=== PATIENT | female | born 1980 | race Caucasian/White ===

== ENCOUNTER 2022-06-22 06:16 | Emergency (ER) | payer BC ==
[~2022-06-22] VITALS: Ht 157.5 cm; Wt 41.7 kg
--- NOTE | 2022-06-22 06:35 | NUR ---
bibself c/o cp x 1 day. vss. no acute distress noted.
[2022-06-22] MEDS ORDERED: LORAZEPAM 1 MG TABLET ONE (06:43)
--- NOTE | 2022-06-22 06:53 | NUR ---
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
[2022-06-22] MEDS ORDERED: LORAZEPAM 1 MG TABLET PO ONE (07:00)
--- NOTE | 2022-06-22 07:45 | NUR ---
PT AWAKE AND ALERT NO CHEST PAIN NO SOB
[2022-06-22 08:13] LABS: BASOPHILS # (AUTO) 0.1 K/uL (0.0-0.2); EOSINOPHILS % (AUTO) 1.1 % (0.0-6.0); HEMATOCRIT 37 % (33-45); HEMOGLOBIN 12.4 g/dL (11.5-14.8); LYMPHOCYTES # (AUTO) 1.7 K/uL (0.8-4.8); MEAN CORPUSCULAR HGB CONC 34 g/dl (31.0-36.0); MEAN CORPUSCULAR VOLUME 91 fL (82-100); MONOCYTES # (AUTO) 0.8 K/uL (0.1-1.30); NEUTROPHILS # (AUTO) 8.1 K/uL (1.8-8.9); NEUTROPHILS % (AUTO) 74.9 % (43.0-81.0); PLATELET COUNT (AUTO) 267 K/uL (150-450); RED BLOOD CELL COUNT(AUTO) 4.06 MIL/uL (4.0-5.2); WHITE BLOOD COUNT (AUTO) 10.8 K/uL (4.3-11.0)
[2022-06-22 08:34] LABS: CALCIUM, SERUM 8.5 mg/dL (8.5-10.1); CARBON DIOXIDE 26 mmol/L (21-32); CHLORIDE 105 mmol/L (98-107); CREATININE 0.7 mg/dL (0.6-1.3); GLUCOSE 101 mg/dL (74-106); POTASSIUM 4.1 mmol/L (3.5-5.1); SODIUM SERUM 139 mmol/L (136-145); UREA NITROGEN, BLOOD 15 mg/dL (7-18)
[2022-06-22 09:52] LABS: MAGNESIUM 2.3 mg/dL (1.8-2.4)
[2022-06-22] MEDS ORDERED: LORA-258 PO (09:59)
[2022-06-22 10:03] VITALS: BP 105/71
--- NOTE | 2022-06-22 10:03 | NUR ---
Patient discharged to home in stable condition. Written and verbal after care instructions given. Patient verbalizes understanding of instruction.
[2022-06-22 12:08] LABS: THYROID STIMULATING HORMONE 0.62 uIU/mL (0.358-3.74)
== END 2022-06-22 10:03 | disposition home or self-care (01) ==
LOC: ER 06:18
DX: R00.2 Palpitations (principal); I49.1 Atrial premature depolarization; F41.9 Anxiety disorder, unspecified; Z88.0 Allergy status to penicillin; Z88.2 Allergy status to sulfonamides; Z88.8 Allergy status to other drugs, medicaments and biological substances; Z79.899 Other long term (current) drug therapy
CPT/HCPCS: 36415; 71045-TC; 80048-TC; 83735-TC; 83880; 84439-TC; 84443-TC; 84484-TC; 85025-TC